=== PATIENT | male | born 1965 | race Caucasian/White ===

== ENCOUNTER 2023-01-09 07:53 | Observation (INO) | payer BC ==
[2023-01-09] MEDS ORDERED: Morphine 4 MG/ML VIAL ONE (08:11)
[2023-01-09] MEDS ORDERED: Labetalol HCl 100 MG/20 ML VIAL ONE (08:12)
[2023-01-09] MEDS ORDERED: Aspirin Chewable 81 MG TAB ONE ×2 (08:12→09:28)
[2023-01-09 08:16] LABS: #Eosinphils 0.4 10x3/uL (0.0-0.5); #Monocytes 0.7 10x3/uL (0.0-1.1); #Neutrophils 4.1 10x3/uL (1.5-8.4); %Basophils 0.3 % (0.0-2.0); %Eosinophils 5.6 % (0.0-6.0); %Lymphocytes 18.6 % (18.0-47.0); %Monocytes 10.7 % (0.0-10.0); %Neutrophils 64.5 % (40.0-75.0); Hematocrit 42.3 % (38.8-50.0); Hemoglobin 13.9 g/dL (13.5-17.5); Mean Corpuscular HGB CONC 32.9 g/dL (32.0-36.0); Mean Corpuscular Hemoglobin 28.1 pg (27.0-33.0); Mean Corpuscular Volume 85.6 fl (81.2-95.1); Mean Platelet Volume 11.3 fl (7.4-10.4); Platelet Count 236 10x3/uL (150-450); RBC Distribution Width 14.1 % (11.5-14.5); Red Blood Cell (RBC) Count 4.94 10x6/uL (4.32-5.72); White Blood Cell (WBC) Count 6.3 10x3/uL (3.5-10.5)
[2023-01-09 08:32] LABS: ALT (SGPT) 52 U/L (8-55); AST (SGOT) 34 U/L (5-34); Albumin 4.2 g/dL (3.5-5.0); Alkaline Phosphatase 142 U/L (40-110); Anion Gap 14 mmol/L (10-20); BUN (Urea Nitrogen) 13 mg/dL (8.4-25.7); Bilirubin, Total 0.6 mg/dL (0.2-1.2); Calc. Creatinine Clearance 0 mL/min (70-130); Calcium 9.7 mg/dL (7.8-10.44); Carbon Dioxide 25 mmol/L (22-29); Chloride 106 mmol/L (98-107); Estimated GFR 81; Globulin 4.3 g/dL (2.4-3.5); Glucose 105 mg/dL (70-105); Lipase 19 U/L (8-78); Magnesium 2.1 mg/dL (1.6-2.6); Potassium 4.4 mmol/L (3.5-5.1); Protein, Total 8.5 g/dL (6.0-8.3); Sodium 141 mmol/L (136-145)
[2023-01-09 08:37] LABS: Troponin I Less than 0.010 ng/mL (< 0.028)
[2023-01-09] MEDS ORDERED: Iopamidol 300 61% 100 ML VIAL FS ONE (09:06)
[2023-01-09 10:33] VITALS: BMI 38.4
[2023-01-09 11:17] LABS: Troponin I Less than 0.010 ng/mL (< 0.028)
[2023-01-09] MEDS ORDERED: Lidocaine 1% (PF) 30 ML VIAL ONE (11:18)
[2023-01-09] MEDS ORDERED: Heparin 10,000 UNITS/ 10 ML VIAL ONE ×2 (11:18→12:15)
[2023-01-09] MEDS ORDERED: fentaNYL 50 mcg/mL 1 mL Vial ONE ×2 (11:38→13:32)
[2023-01-09] MEDS ORDERED: Midazolam HCl 2 mg/2 ml Vial ONE ×2 (11:38→13:32)
[2023-01-09] MEDS ORDERED: Nitroglycerin 50 MG/250 ML BOT 250 ML ONE (11:56)
[2023-01-09] MEDS ORDERED: TICAGRELOR 90 MG TABLET ONE (13:20)
[2023-01-09] MEDS ORDERED: hydrALAZINE 20 MG/ML VIAL ONE (13:31)
[2023-01-09] MEDS ORDERED: cloNIDine 0.1 MG TAB PO PRN (14:10)
[2023-01-09] MEDS ORDERED: Zolpidem Tartrate 5 MG TAB PO PRN (14:10)
[2023-01-09] MEDS ORDERED: Morphine 2 MG/ML VIAL SLOW IVP PRN (14:10)
[2023-01-09] MEDS ORDERED: Acetaminophen/Codeine 30-300mg Tablet PO PRN (14:10)
[2023-01-09] MEDS ORDERED: Morphine 4 MG/ML VIAL SLOW IVP PRN (14:10)
[2023-01-09] MEDS ORDERED: Sodium Chloride 0.9% 1,000 ML IV SCH (14:15)
[2023-01-09 15:27] LABS: Cardiac Risk 4.3 (Less than 4.5)
[2023-01-09 15:29] LABS: Troponin I Less than 0.010 ng/mL (< 0.028)
[2023-01-09] MEDS ORDERED: FLU VACC QS2023-24(6MOS UP)/PF 60 MCG/0.5 ML SYRINGE IM ONE (16:30)
[2023-01-09] MEDS: Acetaminophen/Codeine 30-300mg Tablet PO PRN ×2 (17:51→22:30)
[2023-01-09] MEDS ORDERED: Ondansetron PF 4 MG/2 ML Vial ONE (18:23)
[2023-01-09] MEDS ORDERED: Ondansetron PF 4 MG/2 ML Vial IVP PRN (18:29)
[2023-01-09] MEDS: TICAGRELOR 90 MG TABLET PO SCH (20:25)
[2023-01-09] MEDS ORDERED: Rosuvastatin 10 MG TAB PO SCH (21:00)
[2023-01-10 05:50] LABS: #Eosinphils 0.1 10x3/uL (0.0-0.5); #Monocytes 0.9 10x3/uL (0.0-1.1); #Neutrophils 6.8 10x3/uL (1.5-8.4); %Eosinophils 0.6 % (0.0-6.0); %Lymphocytes 7.3 % (18.0-47.0); %Monocytes 10.3 % (0.0-10.0); %Neutrophils 81.3 % (40.0-75.0); Hematocrit 37.5 % (38.8-50.0); Hemoglobin 12.3 g/dL (13.5-17.5); Mean Corpuscular HGB CONC 32.8 g/dL (32.0-36.0); Mean Corpuscular Hemoglobin 28.1 pg (27.0-33.0); Mean Corpuscular Volume 85.6 fl (81.2-95.1); Mean Platelet Volume 11.4 fl (7.4-10.4); Platelet Count 197 10x3/uL (150-450); RBC Distribution Width 14.4 % (11.5-14.5); Red Blood Cell (RBC) Count 4.38 10x6/uL (4.32-5.72); White Blood Cell (WBC) Count 8.3 10x3/uL (3.5-10.5)
[2023-01-10 05:57] LABS: ALT (SGPT) 60 U/L (8-55); AST (SGOT) 151 U/L (5-34); Albumin 3.7 g/dL (3.5-5.0); Alkaline Phosphatase 113 U/L (40-110); Anion Gap 13 mmol/L (10-20); BUN (Urea Nitrogen) 12 mg/dL (8.4-25.7); Bilirubin, Total 0.8 mg/dL (0.2-1.2); Calc. Creatinine Clearance 120 mL/min (70-130); Calcium 9.1 mg/dL (7.8-10.44); Carbon Dioxide 25 mmol/L (22-29); Chloride 102 mmol/L (98-107); Estimated GFR 83; Globulin 3.8 g/dL (2.4-3.5); Glucose 108 mg/dL (70-105); Potassium 4.3 mmol/L (3.5-5.1); Protein, Total 7.5 g/dL (6.0-8.3); Sodium 136 mmol/L (136-145)
[2023-01-10] MEDS: TICAGRELOR 90 MG TABLET PO SCH (08:20)
[2023-01-10] MEDS ORDERED: Hydrochlorothiazide 25 MG TAB PO SCH (09:00)
[2023-01-10] MEDS ORDERED: Aspirin Chewable 81 MG TAB PO SCH (09:00)
[2023-01-10] MEDS ORDERED: Losartan 50 MG TAB PO SCH (09:00)
[2023-01-10] MEDS ORDERED: Spironolactone 25 MG TAB PO SCH (09:00)
[2023-01-10 12:24] VITALS: BP 117/70; TEMP 98
== END 2023-01-10 12:40 | disposition home or self-care (01) ==
LOC: CSHERS 07:53 → CSHTELE 09:10 → INTOOBSV 09:10
PROVIDERS: ADMIT Specialist; ATTEND Specialist
PROC: 4A023N7 Measurement of Cardiac Sampling and Pressure, Left Heart, Percutaneous Approach (ICD-10-PCS; principal; 2023-01-09)
DX: I25.10 Atherosclerotic heart disease of native coronary artery without angina pectoris (principal); E78.5 Hyperlipidemia, unspecified; I11.0 Hypertensive heart disease with heart failure; I50.32 Chronic diastolic (congestive) heart failure; I25.5 Ischemic cardiomyopathy; E66.9 Obesity, unspecified; Z68.38 Body mass index [BMI] 38.0-38.9, adult; Z86.16 Personal history of COVID-19; Z79.82 Long term (current) use of aspirin
CPT/HCPCS: 0715T; 36415; 71045; 80053; 80061; 83690; 83695; 83735; 83880; 84484; 85025; 85347; 92928; 92978; 92979; 93005; 93010; 93458; 99152; 99153; C1753; C1760; C1761; C1769; C1874; C9600; G0378; J0360; J1644; J2001; J2250; J2270; J2405; J3010; J7050; Q9967

== ENCOUNTER 2023-01-10 21:07 | Inpatient (IN) | payer BC ==
[2023-01-11 00:23] LABS: #Monocytes 1.3 10x3/uL (0.0-1.1); #Neutrophils 9.2 10x3/uL (1.5-8.4); %Basophils 0.1 % (0.0-2.0); %Eosinophils 0.2 % (0.0-6.0); %Lymphocytes 6.3 % (18.0-47.0); %Monocytes 11.3 % (0.0-10.0); %Neutrophils 81.8 % (40.0-75.0); Hematocrit 39.8 % (38.8-50.0); Hemoglobin 13.1 g/dL (13.5-17.5); Mean Corpuscular HGB CONC 32.9 g/dL (32.0-36.0); Mean Corpuscular Hemoglobin 27.9 pg (27.0-33.0); Mean Corpuscular Volume 84.9 fl (81.2-95.1); Mean Platelet Volume 10.9 fl (7.4-10.4); Platelet Count 226 10x3/uL (150-450); RBC Distribution Width 14.4 % (11.5-14.5); Red Blood Cell (RBC) Count 4.69 10x6/uL (4.32-5.72); White Blood Cell (WBC) Count 11.2 10x3/uL (3.5-10.5)
[2023-01-11 00:41] LABS: ALT (SGPT) 61 U/L (8-55); AST (SGOT) 117 U/L (5-34); Alkaline Phosphatase 115 U/L (40-110); Anion Gap 13 mmol/L (10-20); BUN (Urea Nitrogen) 13 mg/dL (8.4-25.7); Calc. Creatinine Clearance 0 mL/min (70-130); Calcium 9.3 mg/dL (7.8-10.44); Carbon Dioxide 28 mmol/L (22-29); Chloride 98 mmol/L (98-107); Estimated GFR 81; Globulin 4.3 g/dL (2.4-3.5); Glucose 114 mg/dL (70-105); Potassium 4.1 mmol/L (3.5-5.1); Protein, Total 8.3 g/dL (6.0-8.3); Sodium 135 mmol/L (136-145)
[2023-01-11 00:51] LABS: Troponin I 17.411 ng/mL (< 0.028)
[2023-01-11 01:13] LABS: Troponin I 17.415 ng/mL (< 0.028)
[2023-01-11] MEDS ORDERED: Calcium Carbonate 500 MG ChewTAB PO PRN (02:05)
[2023-01-11] MEDS ORDERED: Senokot S 8.6-50 MG TAB PO PRN (02:05)
[2023-01-11] MEDS ORDERED: Zolpidem Tartrate 5 MG TAB PO PRN (02:05)
[2023-01-11] MEDS ORDERED: Ondansetron PF 4 MG/2 ML Vial IVP PRN (02:05)
[2023-01-11] MEDS ORDERED: Sodium Chloride 0.9% 250 ML IV SCH (02:15)
[2023-01-11 04:58] LABS: #Monocytes 1.2 10x3/uL (0.0-1.1); #Neutrophils 8.5 10x3/uL (1.5-8.4); %Basophils 0.1 % (0.0-2.0); %Eosinophils 0.2 % (0.0-6.0); %Lymphocytes 9.1 % (18.0-47.0); %Monocytes 11.4 % (0.0-10.0); %Neutrophils 78.7 % (40.0-75.0); Hematocrit 38.3 % (38.8-50.0); Hemoglobin 12.7 g/dL (13.5-17.5); Mean Corpuscular HGB CONC 33.2 g/dL (32.0-36.0); Mean Corpuscular Hemoglobin 28.5 pg (27.0-33.0); Mean Corpuscular Volume 86.1 fl (81.2-95.1); Platelet Count 210 10x3/uL (150-450); RBC Distribution Width 14.5 % (11.5-14.5); Red Blood Cell (RBC) Count 4.45 10x6/uL (4.32-5.72); White Blood Cell (WBC) Count 10.8 10x3/uL (3.5-10.5)
[2023-01-11 05:07] LABS: ALT (SGPT) 53 U/L (8-55); AST (SGOT) 92 U/L (5-34); Albumin 3.8 g/dL (3.5-5.0); Alkaline Phosphatase 102 U/L (40-110); Anion Gap 13 mmol/L (10-20); BUN (Urea Nitrogen) 13 mg/dL (8.4-25.7); Bilirubin, Total 0.9 mg/dL (0.2-1.2); CK (CPK) 566 U/L (30-200); Calc. Creatinine Clearance 0 mL/min (70-130); Calcium 9.1 mg/dL (7.8-10.44); Carbon Dioxide 26 mmol/L (22-29); Chloride 98 mmol/L (98-107); Estimated GFR 80; Glucose 112 mg/dL (70-105); Protein, Total 7.8 g/dL (6.0-8.3); Sodium 133 mmol/L (136-145)
[2023-01-11] MEDS ORDERED: TICAGRELOR 90 MG TABLET ONE (09:20)
[2023-01-11] MEDS ORDERED: Aspirin Chewable 81 MG TAB ONE (09:20)
[2023-01-11] MEDS: Aspirin Chewable 81 MG TAB PO SCH (09:23)
[2023-01-11] MEDS: TICAGRELOR 90 MG TABLET PO SCH ×2 (09:24→20:44)
[2023-01-11 13:42] LABS: Troponin I 12.076 ng/mL (< 0.028)
[2023-01-12 05:07] VITALS: BMI 37.0
[2023-01-12 05:37] LABS: #Monocytes 1.1 10x3/uL (0.0-1.1); #Neutrophils 7.7 10x3/uL (1.5-8.4); %Basophils 0.1 % (0.0-2.0); %Eosinophils 0.2 % (0.0-6.0); %Monocytes 11.4 % (0.0-10.0); Hematocrit 38.4 % (38.8-50.0); Hemoglobin 12.8 g/dL (13.5-17.5); Mean Corpuscular HGB CONC 33.3 g/dL (32.0-36.0); Mean Corpuscular Hemoglobin 28.3 pg (27.0-33.0); Mean Corpuscular Volume 84.8 fl (81.2-95.1); Mean Platelet Volume 11.4 fl (7.4-10.4); Platelet Count 199 10x3/uL (150-450); RBC Distribution Width 14.4 % (11.5-14.5); Red Blood Cell (RBC) Count 4.53 10x6/uL (4.32-5.72); White Blood Cell (WBC) Count 9.6 10x3/uL (3.5-10.5)
[2023-01-12 05:48] LABS: Troponin I 11.095 ng/mL (< 0.028)
[2023-01-12] MEDS: Acetaminophen 325 MG TAB PO PRN ×2 (08:00→12:13)
[2023-01-12] MEDS: TICAGRELOR 90 MG TABLET PO SCH ×2 (08:01→21:37)
[2023-01-12] MEDS: Aspirin Chewable 81 MG TAB PO SCH (08:01)
[2023-01-12 09:25] LABS: Troponin I 9.722 ng/mL (< 0.028)
[2023-01-12 10:12] LABS: ALT (SGPT) 41 U/L (8-55); AST (SGOT) 50 U/L (5-34); Albumin 3.6 g/dL (3.5-5.0); Alkaline Phosphatase 104 U/L (40-110); Anion Gap 15 mmol/L (10-20); BUN (Urea Nitrogen) 12 mg/dL (8.4-25.7); Bilirubin, Total 1.1 mg/dL (0.2-1.2); CK (CPK) 221 U/L (30-200); Calc. Creatinine Clearance 141 mL/min (70-130); Carbon Dioxide 21 mmol/L (22-29); Chloride 103 mmol/L (98-107); Estimated GFR 101; Globulin 4.1 g/dL (2.4-3.5); Glucose 101 mg/dL (70-105); Potassium 3.8 mmol/L (3.5-5.1); Protein, Total 7.7 g/dL (6.0-8.3); Sodium 135 mmol/L (136-145)
[2023-01-12] MEDS ORDERED: Nitroglycerin 0.4 MG TAB (25 Tab Bottle) SL PRN (11:37)
[2023-01-12] MEDS ORDERED: Metoprolol Tartrate 50 MG TAB PO SCH (14:00)
[2023-01-12] MEDS ORDERED: Ketorolac Tromethamine 30 MG/ML VIAL IVP SCH (15:00)
[2023-01-12] MEDS: Rosuvastatin 10 MG TAB PO SCH (21:37)
[2023-01-12] MEDS: Colchicine 0.6 MG TAB PO SCH (21:39)
[2023-01-12] MEDS: Metoprolol Tartrate 25 MG TAB PO SCH (21:42)
[2023-01-13 05:04] LABS: Anion Gap 15 mmol/L (10-20); BUN (Urea Nitrogen) 21 mg/dL (8.4-25.7); Calc. Creatinine Clearance 112 mL/min (70-130); Calcium 9.1 mg/dL (7.8-10.44); Carbon Dioxide 20 mmol/L (22-29); Chloride 103 mmol/L (98-107); Estimated GFR 77; Glucose 113 mg/dL (70-105); Potassium 3.9 mmol/L (3.5-5.1); Sodium 134 mmol/L (136-145)
[2023-01-13] MEDS: Metoprolol Tartrate 25 MG TAB PO SCH ×2 (08:38→21:28)
[2023-01-13] MEDS: Colchicine 0.6 MG TAB PO SCH ×2 (08:39→21:27)
[2023-01-13] MEDS: Acetaminophen 325 MG TAB PO PRN (08:39)
[2023-01-13] MEDS: TICAGRELOR 90 MG TABLET PO SCH ×2 (08:39→21:28)
[2023-01-13] MEDS: Aspirin Chewable 81 MG TAB PO SCH (08:39)
[2023-01-13 10:52] LABS: Bilirubin Neg (Negative); Blood, Urine 10 (Negative); Clarity Clear (Clear); Glucose, Urine (Dipstick) Normal (Negative); Ketone, Urine Negative (Negative); Leukocyte Negative (Negative); Nitrite Negative (Negative); Protein, Urine (Dipstick) 30 mg/dl (Neg-Trace); Urobilinogen Normal mg/dL (Less than 2); pH, Urine 6.5 (5.0-9.0)
[2023-01-13 11:02] LABS: SARS-CoV-2 NAA Rapid Test Not Detected (NotDetected)
[2023-01-13 11:11] LABS: Bacteria/HPF None Seen HPF (None Seen); CAUTI Indications for Culture Fever or rigors; RBC/HPF 0-3 HPF (0-3); Squamous Epithelial 0-3 HPF (0-3); WBC/HPF None Seen HPF (0-3)
[2023-01-13 11:12] LABS: Urine Culture Reflex No No
[2023-01-13] MEDS ORDERED: Acetaminophen 325 MG TAB PO PRN (11:13)
[2023-01-13] MEDS ORDERED: Ketorolac Tromethamine 30 MG/ML VIAL IVP SCH (11:30)
[2023-01-13] MEDS: Cephalexin 500 MG CAP PO SCH (18:39)
[2023-01-13] MEDS: Rosuvastatin 10 MG TAB PO SCH (21:27)
[2023-01-14] MEDS: Cephalexin 500 MG CAP PO SCH ×2 (00:09→06:07)
[2023-01-14 05:41] LABS: #Eosinphils 0.2 10x3/uL (0.0-0.5); #Monocytes 0.9 10x3/uL (0.0-1.1); #Neutrophils 5.1 10x3/uL (1.5-8.4); %Basophils 0.1 % (0.0-2.0); %Eosinophils 3.4 % (0.0-6.0); %Lymphocytes 8.4 % (18.0-47.0); %Monocytes 12.7 % (0.0-10.0); %Neutrophils 75.1 % (40.0-75.0); Hemoglobin 11.8 g/dL (13.5-17.5); Mean Corpuscular HGB CONC 32.8 g/dL (32.0-36.0); Mean Corpuscular Volume 85.3 fl (81.2-95.1); Mean Platelet Volume 11.7 fl (7.4-10.4); Platelet Count 216 10x3/uL (150-450); RBC Distribution Width 14.2 % (11.5-14.5); Red Blood Cell (RBC) Count 4.22 10x6/uL (4.32-5.72); White Blood Cell (WBC) Count 6.8 10x3/uL (3.5-10.5)
[2023-01-14 05:46] LABS: Anion Gap 13 mmol/L (10-20); BUN (Urea Nitrogen) 18 mg/dL (8.4-25.7); Calc. Creatinine Clearance 126 mL/min (70-130); Carbon Dioxide 22 mmol/L (22-29); Chloride 104 mmol/L (98-107); Estimated GFR 91; Glucose 102 mg/dL (70-105); Potassium 3.7 mmol/L (3.5-5.1); Sodium 135 mmol/L (136-145)
[2023-01-14] MEDS: Aspirin Chewable 81 MG TAB PO SCH (08:25)
[2023-01-14] MEDS: Metoprolol Tartrate 25 MG TAB PO SCH (08:25)
[2023-01-14] MEDS: Colchicine 0.6 MG TAB PO SCH (08:25)
[2023-01-14] MEDS: TICAGRELOR 90 MG TABLET PO SCH (08:26)
[2023-01-14 09:19] VITALS: BP 126/75; TEMP 97.9
== END 2023-01-14 10:47 | disposition home or self-care (01) | DRG 281 ==
LOC: CSHERS 21:07 → CSHERHOLD 01-11 01:52 → CSHTELE 01-11 14:20 → OBSVTOIN 01-12 18:18
PROVIDERS: ADMIT Student in an Organized Health Care Education/Training Program; ATTEND Internal Medicine
DX: I95.9 Hypotension, unspecified (principal); I21.4 Non-ST elevation (NSTEMI) myocardial infarction; I50.22 Chronic systolic (congestive) heart failure; I25.10 Atherosclerotic heart disease of native coronary artery without angina pectoris; R79.89 Other specified abnormal findings of blood chemistry; I10 Essential (primary) hypertension; E78.5 Hyperlipidemia, unspecified; Z79.82 Long term (current) use of aspirin; Z79.899 Other long term (current) drug therapy; Z95.5 Presence of coronary angioplasty implant and graft; Z83.3 Family history of diabetes mellitus; R73.03 Prediabetes; M25.512 Pain in left shoulder; B34.9 Viral infection, unspecified; Z20.822 Contact with and (suspected) exposure to COVID-19
CPT/HCPCS: 36415; 36416; 71045; 71046; 80048; 80053; 81001; 82550; 83735; 83880; 84484; 85025; 85379; 87040; 87633; 93005; 93010; 93306; 96372; 96374; G0378; J1650; J1885; J7030

== ENCOUNTER 2025-02-10 20:23 | Emergency (ER) | payer BC ==
[2025-02-10 21:08] LABS: #Basophils Less than 0.03 10x3/uL (0.0-0.2); #Eosinophils 0.27 10x3/uL (0.0-0.5); #Monocytes 0.65 10x3/uL (0.0-1.1); #Neutrophils 3.83 10x3/uL (1.5-8.4); %Basophils 0.2 % (0.0-2.0); %Eosinophils 5.1 % (0.0-6.0); %Lymphocytes 10.5 % (18.0-47.0); %Monocytes 12.2 % (0.0-10.0); %Neutrophils 71.8 % (40.0-75.0); Hematocrit 40.9 % (38.8-50.0); Hemoglobin 13.1 g/dL (13.5-17.5); Mean Corpuscular Hemoglobin 27.5 pg (27.0-33.0); Mean Corpuscular Volume 85.7 fL (81.2-95.1); Platelet Count 225 10x3/uL (150-450); Red Blood Cell (RBC) Count 4.77 10x6/uL (4.32-5.72); White Blood Cell (WBC) Count 5.33 10x3/uL (3.5-10.5)
[2025-02-10 21:47] LABS: Troponin I Less than 0.010 ng/mL (< 0.028)
[2025-02-10 21:53] LABS: ALT (SGPT) 43 U/L (Less than 45); AST (SGOT) 57 U/L (11-34); Albumin 3.9 g/dL (3.1-4.5); Alkaline Phosphatase 140 U/L (40-110); Anion Gap 14 mmol/L (10-20); BUN (Urea Nitrogen) 12 mg/dL (8.4-25.7); Bilirubin, Total 0.4 mg/dL (0.3-1.2); Calc. Creatinine Clearance 0 mL/min (70-130); Calcium 10.0 mg/dL (7.8-10.44); Carbon Dioxide 23 mmol/L (22-29); Chloride 103 mmol/L (98-107); Globulin 4.3 g/dL (2.4-3.5); Glucose 104 mg/dL (70-105); Potassium 3.9 mmol/L (3.5-5.1); Sodium 136 mmol/L (136-145)
[2025-02-10 22:10] LABS: Glucose, Urine (Dipstick) Normal (Negative); Leukocyte Negative (Negative); Protein, Urine (Dipstick) Negative (Neg-Trace); Specific Gravity, Urine 1.010 (1.005-1.030)
[2025-02-10 22:38] LABS: Bacteria/HPF None Seen HPF (None Seen); CAUTI Indications for Culture Pelvic or flank pain; RBC/HPF None Seen HPF (0-3); WBC/HPF None Seen HPF (0-3)
[2025-02-10 22:39] LABS: Urine Culture Reflex No No
== END 2025-02-11 00:25 | disposition home or self-care (01) ==
LOC: CSHERS 20:23
DX: R07.89 Other chest pain (principal); I10 Essential (primary) hypertension; I25.10 Atherosclerotic heart disease of native coronary artery without angina pectoris; E78.5 Hyperlipidemia, unspecified; Z79.899 Other long term (current) drug therapy
CPT/HCPCS: 36415; 71045; 80053; 81001; 83880; 84484; 85025; 93005